=== PATIENT | male | born 1960 | race Two or more races ===

== ENCOUNTER → 2021-06-14 | Outpatient (CLI) | payer BC | END | disposition home or self-care (01) | LOC: RAD 12:12 | PROVIDERS: ATTEND Family Medicine | DX: I51.7 Cardiomegaly (principal); Z96.611 Presence of right artificial shoulder joint | CPT/HCPCS: 71046 ==

== ENCOUNTER → 2022-12-19 | Day surgery (SDC) | payer BC ==
[~2022-12-19] MED LIST: ALBUTEROL SULFATE 2.5 MG/3 ML NEBU ONE; BUPIVACAINE PF 0.5% 30 ML VIAL ONE; BUPIVACAINE/EPI PF 0.25% 10 ML VIAL IJ ONE; CEFAZOLIN 50 ML IV ONE; CELECOXIB 200 MG CAPSULE PO ONE; FAMOTIDINE. 20 MG/2 ML VIAL IV ONE; FENTANYL CITRATE 250 MCG/5 ML AMPUL ONE; LIDOCAINE 2% (GLYDO= UROJET) 10 ML JELLY MM ONE; MIDAZOLAM HCL 2 MG/2 ML VIAL ONE; ROCURONIUM BROMIDE 50 MG/5 ML VIAL ONE
[2022-12-19 10:27] VITALS: O2SAT 94
[2022-12-19 10:42] VITALS: O2SAT 95
[2022-12-19 12:30] VITALS: TEMP 97.2
== END | disposition home or self-care (01) ==
LOC: DS 07:21
PROVIDERS: ATTEND Surgery
DX: D17.0 Benign lipomatous neoplasm of skin and subcutaneous tissue of head, face and neck (principal); I10 Essential (primary) hypertension; E78.5 Hyperlipidemia, unspecified; M19.90 Unspecified osteoarthritis, unspecified site; K21.9 Gastro-esophageal reflux disease without esophagitis; E66.9 Obesity, unspecified; G47.33 Obstructive sleep apnea (adult) (pediatric); J45.909 Unspecified asthma, uncomplicated; Z79.899 Other long term (current) drug therapy; Z96.659 Presence of unspecified artificial knee joint; Z98.890 Other specified postprocedural states
CPT/HCPCS: 21555; J3490 ×4; J0690; J2250; J3010; J7120 ×3; 93005; A4649; A4663